=== PATIENT | male | born 1985 | race Caucasian/White ===

== ENCOUNTER 2017-10-06 01:49 | Emergency (ER) | payer MEDICAID ==
[2017-10-06] MEDS: LIDOCAINE/MYLANTA 40 ML BTL PO (02:54)
[2017-10-06] MEDS: ONDANSETRON (ODT) 4 MG TAB ODT (02:54)
[2017-10-06 03:21] LABS: ADD MAN DIFF? NO
[2017-10-06 03:24] LABS: WHITE BLOOD COUNT 4.3 10^3/ul (4.8-10.8)
[2017-10-06 03:24] LABS: BASOPHILS % 0.2 % (0.0-2.0); EOSINOPHILS # 0.1 10^3/ul (0.0-0.5); EOSINOPHILS % 3.3 % (0.0-7.0); HEMATOCRIT 45.3 % (42.0-52.0); HEMOGLOBIN 15.2 g/dl (14.0-18.0); LYMPHOCYTES # 1.8 10^3/ul (0.8-2.9); LYMPHOCYTES % 41.9 % (15.0-51.0); MEAN CORPUSCULAR HEMOGLOBIN 28.8 pg (29.0-33.0); MEAN CORPUSCULAR HGB CONC 33.6 g/dl (32.0-37.0); MEAN PLATELET VOLUME 10.4 fl (7.4-10.4); MONOCYTE # 0.3 10^3/ul (0.3-0.9); MONOCYTES % 7.5 % (0.0-11.0); NEUTROPHILS % 46.6 % (39.0-77.0); PLATELET COUNT 217 10^3/UL (140-415); RED BLOOD COUNT 5.27 10^6/ul (4.70-6.10); RED CELL DISTRIBUTION WIDTH 13.2 % (11.5-14.5)
[2017-10-06 03:30] LABS: ADD UMIC NO; UR ASCORBIC ACID NEGATIVE (NEGATIVE); UR BILIRUBIN (Dip) NEGATIVE (NEGATIVE); UR BLOOD (Dip) NEGATIVE (NEGATIVE); UR CLARITY CLEAR (CLEAR); UR COLOR STRAW (YELLOW); UR GLUCOSE (Dip) NEGATIVE (NEGATIVE); UR KETONES (Dip) NEGATIVE (NEGATIVE); UR LEUKOCYTE ESTERASE (Dip) NEGATIVE Leu/ul (NEGATIVE); UR NITRITE (Dip) NEGATIVE (NEGATIVE); UR SPECIFIC GRAVITY (Dip) 1.012 (1.003-1.030); UR TOTAL PROTEIN (Dip) NEGATIVE (NEGATIVE); UR UROBILINOGEN (Dip) NEGATIVE (NEGATIVE)
[2017-10-06 03:55] LABS: ALANINE AMINOTRANSFERASE 24 IU/L (13-69); ALBUMIN 4.6 g/dl (3.3-4.9); ALBUMIN/GLOBULIN RATIO 1.21; ALKALINE PHOSPHATASE 63 IU/L (42-121); ANION GAP 18 (8-16); ASPARTATE AMINO TRANSFERASE 22 IU/L (15-46); BILIRUBIN,INDIRECT 0.4 mg/dl (0-1.1); BILIRUBIN,TOTAL 0.4 mg/dl (0.2-1.3); BLOOD UREA NITROGEN 21 mg/dl (7-20); CALCIUM 8.9 mg/dl (8.4-10.2); CARBON DIOXIDE 26 mmol/L (21-31); CHLORIDE 107 mmol/L (97-110); CREATININE 0.87 mg/dl (0.61-1.24); GLUCOSE 105 mg/dl (70-220); LIPASE 114 U/L (23-300); POTASSIUM 4.2 mmol/L (3.5-5.1); SODIUM 147 mmol/L (135-144); TOTAL PROTEIN 8.4 g/dl (6.1-8.1)
== END 2017-10-06 04:21 | disposition home or self-care (01) ==
LOC: FTE 01:49
DX: K21.9 Gastro-esophageal reflux disease without esophagitis (principal)
CPT/HCPCS: 36415; 76705; 80053; 81003; 83690; 85025; 93005; 99285-25

== ENCOUNTER 2018-11-18 23:00 | Emergency (ER) | payer MEDICAID ==
[2018-11-18] MEDS: IBUPROFEN 600 MG TAB PO (23:40)
== END 2018-11-19 01:26 | disposition home or self-care (01) ==
LOC: FTE 11-19 01:26
DX: R22.2 Localized swelling, mass and lump, trunk (principal)
CPT/HCPCS: 72072; 76536; 99284-25

== ENCOUNTER 2018-12-05 23:16 | Emergency (ER) | payer MEDICAID ==
[2018-12-06] MEDS: BENZONATATE 100 MG CAP PO (01:18)
[2018-12-06] MEDS: IBUPROFEN 600 MG TAB PO (01:18)
== END 2018-12-06 01:55 | disposition home or self-care (01) ==
LOC: FTE 23:16
DX: J18.1 Lobar pneumonia, unspecified organism (principal)
CPT/HCPCS: 71045; 99283-25